=== PATIENT | female | born 1980 | race Caucasian/White ===

== ENCOUNTER 2018-01-30 04:45 | Outpatient (CLI) | payer OTHER | END 2018-01-30 04:46 | disposition EMS.NT | LOC: EMS 04:45 | PROVIDERS: ATTEND Surgery | DX: R07.0 Pain in throat (principal); M54.2 Cervicalgia; Y04.8XXA Assault by other bodily force, initial encounter ==

== ENCOUNTER 2020-09-05 08:59 | Outpatient (CLI) | payer OTHER ==
[2020-09-05 12:21] LABS: BASOPHILS % (AUTO) 0.3 %; EOSINOPHILS # (AUTO) 0.1 10^3/uL (0.0-0.7); EOSINOPHILS % (AUTO) 1.9 %; HGB - HEMOGLOBIN 13.7 g/dL (12.0-16.0); LYMPHOCYTES # (AUTO) 1.8 10^3/uL (1.5-3.5); LYMPHOCYTES % (AUTO) 28.5 %; MEAN CORPUSCULAR HEMOGLOBIN 29.4 pg (27.0-31.0); MEAN CORPUSCULAR HGB CONC 33.1 g/dL (32.0-36.0); MEAN CORPUSCULAR VOLUME 88.8 fL (81.0-99.0); MEAN PLATELET VOLUME 10.7 fL (7.9-10.8); MONOCYTES # (AUTO) 0.3 10^3/uL (0.0-1.0); MONOCYTES % (AUTO) 5.1 %; NEUTROPHILS # (AUTO) 4.1 10^3/uL (1.5-6.6); NEUTROPHILS % (AUTO) 63.7 %; PLT - PLATELET COUNT 265 10^3/uL (130-450); RED BLOOD COUNT 4.66 10^6/uL (4.20-5.40); RED CELL DISTRIBUTION WIDTH 13.2 % (12.0-15.0); WHITE BLOOD COUNT 6.4 x10^3/uL (4.8-10.8)
[2020-09-05 12:35] LABS: ALBUMIN 3.9 g/dL (3.2-5.5); ALBUMIN/GLOBULIN RATIO 1.1 (1.0-2.2); ALKALINE PHOSPHATASE 78 IU/L (42-121); ALT ALANINE AMINOTRANSFERASE 35 IU/L (10-60); AST ASPARTATE AMINOTRANSFERASE 22 IU/L (10-42); BILIRUBIN,TOTAL 0.6 mg/dL (0.2-1.0); BUN - BLOOD UREA NITROGEN 11 mg/dL (6-20); CALCIUM 9.1 mg/dL (8.5-10.3); CARBON DIOXIDE - CO2 24 mmol/L (21-32); CHLORIDE 97 mmol/L (101-111); CHOL/HDL RATIO 5.1 (<4.4); CHOLESTEROL 208 mg/dL; CREATININE 0.6 mg/dL (0.4-1.0); GLUCOSE 292 mg/dL (70-100); HDL CHOLESTEROL 41 mg/dL; TOTAL PROTEIN 7.4 g/dL (6.7-8.2)
[2020-09-05 12:45] LABS: THYROID STIMULATING HORMONE 1.66 uIU/mL (0.34-5.60)
[2020-09-05 12:57] LABS: LDL CHOLESTEROL,DIRECT 93 mg/dL; LDLD/HDL RATIO 2.3 (<4.4)
== END 2020-09-05 09:00 | disposition home or self-care (01) ==
LOC: LAB.N 08:59
PROVIDERS: ATTEND Internal Medicine
DX: R60.9 Edema, unspecified (principal); R53.83 Other fatigue; K90.41 Non-celiac gluten sensitivity; G47.33 Obstructive sleep apnea (adult) (pediatric); Z83.3 Family history of diabetes mellitus; Z13.6 Encounter for screening for cardiovascular disorders; Z82.49 Family history of ischemic heart disease and other diseases of the circulatory system; E11.9 Type 2 diabetes mellitus without complications
CPT/HCPCS: 36415; 80053; 80061; 82607; 83036; 83721; 84443; 85025

== ENCOUNTER 2020-11-15 11:27 | Outpatient (CLI) | payer OTHER ==
[2020-11-15] MEDS ORDERED: IOPAMIDOL-300 100 ML VIAL ONE (11:46)
[2020-11-15] MEDS ORDERED: IOPAMIDOL-300 50 ML VIAL ONE (11:51)
[2020-11-15 12:07] LABS: CREATININE 0.6 mg/dL (0.4-1.0)
[2020-11-15] MEDS ORDERED: IOPAMIDOL-300 100 ML VIAL IVP ONE (13:29)
[2020-11-15] MEDS ORDERED: IOPAMIDOL-300 50 ML VIAL PO ONE (13:30)
--- NOTE | 2020-11-15 14:10 | CT Report ---
PROCEDURE: Abdomen/Pelvis W INDICATIONS: LLQ PAIN, DIARRHEA CONTRAST: IV CONTRAST: Isovue 300 ml: 100 PO CONTRAST: Isovue 300 ml50 TECHNIQUE: After the administration of contrast, 5 mm thick sections acquired from the diaphragms to the sym physis. 5 mm thick coronal and sagittal reformats were acquired. For radiation dose reduction, the following was used: automated exposure control, adjustment of mA and/or kV according to patient size . COMPARISON: None FINDINGS: Image quality: Excellent. ABDOMEN: Lung bases: Lung bases are clear. Heart size is normal. Solid organs: Liver and spleen are normal in size and enhancement. Gallbladder is filled completely with calcified gallstones, but without associated biliary distention or acute cholecystitis Biliary system is non dilated. Pancreas enhances normally. No adrenal nodules. Kidneys demonstrate normal size and enhancement, without hydronephrosis. Peritoneum and bowel: Bowel loops demonstrate normal wall thickness and caliber. No free fluid or a ir. Moderate colonic obstipation. Nodes and vessels: No retroperitoneal or mesenteric adenopathy by size criteria. Aorta and inferior vena cava are normal in size. Miscellaneous: No ventral hernias. PELVIS: Genitourinary: Bladder wall thickness is normal. Miscellaneous: No inguinal hernias or adenopathy. Moderate colonic obstipation. Bones: No suspicious bony lesions. No vertebral body compression fractures. IMPRESSION: There is no evidence of diverticulitis or colitis. Moderate colonic obstipation. Source of current symptoms is not found. The gallbladder is partially filled by numerous densely calcified gallstones. Biliary ductal distenti on is not found. Please correlate clinically to determine whether surgical consultation is warranted. Reviewed by: Boogie Ortiz MD on 11/15/2020 2:08 PM PDT Approved by: Boogie Ortiz MD on 11/15/2020 2:08 PM PDT Station ID: [id number]
== END 2020-11-15 11:28 | disposition home or self-care (01) ==
LOC: LAB 11:27 → DI 11:28
PROVIDERS: ATTEND Physician Assistant
DX: K59.00 Constipation, unspecified (principal); K80.20 Calculus of gallbladder without cholecystitis without obstruction
CPT/HCPCS: 36415; 74177; 82565; Q9967

== ENCOUNTER 2020-12-10 08:54 | Outpatient (CLI) | payer OTHER ==
[2020-12-10 09:41] VITALS: BP 108/72
--- NOTE | 2020-12-10 09:41 | SLEEP CARE CONSULTATION ---
Information from patient questionnaire entered by Danelle Reid. I have reviewed and concur with the information entered by Danelle Reid. This document represents the service I personally performed and the decisions made by me, Jeimy Mckeon ARNP. History of Present Illness Service Date and Time: 12/10/2020 0854 Reason for Visit: New patient, Previously diagnosed sleep apnea, sleep apnea on CPAP therapy ([facility]) Chief Complaint: reports: Insomnia, Unrefreshed sleep, Snoring (when not using CPAP), Fatigue, Other (update supplies) Date of Onset: 12 years Usual bedtime: 10 pm Time it takes to fall asleep: 2 plus hours Snores at night: Yes Observed to quit breathing while asleep: Yes Number of times waking at night: 1-2 if I do Reasons for waking at night: reports: Other (unknown reason, dreams) Toss, Turn, or Twitch while sleeping: No Recalls having dreams: No (not ususally) Usually gets out of bed at: 7:30 am Feels refreshed in the morning: No Morning headache: No Sleepy or fatigued during the day: Yes Ever fallen asleep while driving: No Takes day naps: No Dreams during day naps: No Prior sleep studies: Yes Year and Where: 2015 - [facility]; 2012 - in [place]; 2008 - [place] Additional HPI information: ALYSSA YOUSSEF was diagnosed to have unknown sleep apnea-hypopnea syndrome and comes in today to establish care for CPAP therapy. She thinks her last in lab study showed her AHI in the 90-100s. She does not have a copy with her today. - Parasomnia Symptoms Ever been unable to move upon waking from sleep: No Walks in sleep: No Talks in sleep: No Ever acted out dreams in sleep: Yes Ever felt weak in the knees when startled or emotional: No Bothered by creepy, crawly, restless sensations in legs: No Problems with memory or concentration: Yes (both) CPAP Compliance Data - Data Reviewed with Patient Average duration of nightly device use: 7 hr 58 min Compliance rate %: 99 (180 days) Current pressure setting (cmH2O): 12-17 Average residual AHI: 0.4 Central apnea: 0.0 Obstructive apnea: 0.2 Compliance data discussion: She is using an over the nose mask. She has issues with some skin sensitivity with some masks but her current mask does not. She does have a back up mask if needed. She last changed her mask out last month. She has [employer] and [employer] until her divorce goes through. She states her machine is due for an update. She had one ordered last year but never received it. Subjective Patient concerns: reports: dry mouth, nose, throat (mouth, only when sleeping with mouth open). denies: aerophagia, mask discomfort, air blowing in eyes, mask leak noise, condensation in mask/hose, nasal congestion, epistaxis, other Observed to snore while using device: No Current pressure setting perceived as: comfortable On therapy, patient: reports: sleeping better, awakening more refreshed, being more awake and alert during the day, more rested overall. 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 Patient is and lives in [place]. Have you smoked in the past 12 months: No Cigarettes per day (20/pack): 20 Years of smokin Quit date: 2014 Smoking Pack Years: 15.0 Alcohol use: No Caffeine use: Yes Caffeine amount and frequency: large tea daily Family History Family history of sleep disordered breathing: Yes Family Hx Sleep Apnea: Mother: Snoring, Father: Snoring, Sibling: Snoring, Grandparent: Snoring Allergies and Home Medications Drug allergies reviewed: Yes (Penicillin, codiene, sulfa) Home medication list reviewed: Yes Allergy and home medication list: Ozempic 0.5 mg Metformin 750 mg Multivitamin, occasionally Review of Systems Weight gain over past 5 years: 45 Weight loss over past 5 years: 36 Gastrointestinal: reports: nausea, abdominal pain Psychiatric: reports: Attention Deficit Hyperactivity Ear/Nose/Throat: reports: tonsillectomy Endocrine: reports: too hot or cold Musculoskeletal: reports: back pain, muscle pain or cramping Immunologic: reports: allergies to food or environment, other (chemical sensitivity) Physical Exam Blood Pressure: 108/72 Cuff size: wrist Heart Rate: 97 O2 Saturation: 98 Height: 5 ft 2.75 in Weight: 277 lb Body Mass Index: 49.4 BMI Classification: Morbidly Obese Impression and Plan 1. Obstructive Sleep Apnea-Hypopnea Syndrome, unknown, with excellent treatment compliance and good apnea control. On CPAP therapy, the patient has better sleep quality and is more rested overall. We need a copy of her last sleep study to update her supplies. She thinks she is due for a new machine and she was last setup in 04/2016. Once I have her sleep study then we can also try to update her machine but she may have to wait until April. With her changing to a new insurance she may be able to update sooner. I will follow up with her after she updates her machine or in 1 year depending. Patient's apnea severity and rationale for treatment to reduce apnea, improve sleep quality and reduce cardiovascular and cerebrovascular events was reviewed. I also reviewed the benefit of consistent device use of CPAP for diabetes, Attention deficit. * Continue auto CPAP pressure at 12-17 cmH2O * Update supplies once we obtain copy of previous sleep study * Update machine when eligible * Notify me if snoring with mask or feeling that the pressure is too much or too little * Attempt to lose weight * Call this office if any problems using CPAP * Return for follow up after updating machine, or sooner if concerns arise Counseling Topics: Spare mask, Weight loss health impact Visit Type: In Office Time Spent with Patient (minutes): 33 Provider Statement: I spent 100% of the Face to Face Visit with the patient with greater than 50% spent counseling the patient and coordination of care.
== END 2020-12-10 08:55 | disposition home or self-care (01) ==
LOC: SC 08:54
PROVIDERS: ATTEND Nurse Practitioner Family
DX: G47.33 Obstructive sleep apnea (adult) (pediatric) (principal); E66.01 Morbid (severe) obesity due to excess calories; Z68.42 Body mass index [BMI] 45.0-49.9, adult
CPT/HCPCS: 99203; 99212

== ENCOUNTER 2021-02-13 08:02 | Outpatient (CLI) | payer OTHER ==
--- NOTE | 2021-02-13 08:38 | SLEEP CARE CONSULTATION ---
Information from patient questionnaire entered by Danelle Reid. I have reviewed and concur with the information entered by Danelle Reid. This document represents the service I personally performed and the decisions made by , Jeimy Mckeon ARNP. History of Present Illness Service Date and Time: 02/13/2021 0802 Previous diagnosis: Extremely Severe, Obstructive Sleep Apnea-Hypopnea Syndrome AHI: 112.7 (in 2015) Reason for follow up: first compliance after device update Equipment type: CPAP Equipment obtained from: [facility] (getting supplies needed) Mask style: Nasal Backup mask available: Yes (old mask) Last cushion change: 1.5 months Prior sleep studies: Yes Year and Where: 2015 - [facility]; 2012 - in [place]; 2008 - [facility] additional information: ALYSSA YOUSSEF was diagnosed to have extremely severe, AHI 112.7, obstructive sleep apnea-hypopnea syndrome and returned today for CPAP therapy first compliance after updating device follow-up. CPAP Compliance Data - Data Reviewed with Patient Average duration of nightly device use: 7 hr 44 min Compliance rate %: 100 Current pressure setting (cmH2O): 12-17 Humidity settin Heated hose settin Average residual AHI: 0.6 Average large leak: 8 sec Subjective Patient concerns: reports: mask discomfort, other (redness). denies: aerophagia, air blowing in eyes, mask leak noise, condensation in mask/hose, nasal congestion, dry mouth, nose, throat, epistaxis Observed to snore while using device: No Current pressure setting perceived as: comfortable On therapy, patient: reports: sleeping better, awakening more refreshed, being more awake and alert during the day, more rested overall. denies: drowsiness while driving Initial [place] Sleepiness Scale score: 1 (in 2020) Current [place] Sleepiness Scale score: 0 Allergies and Home Medications Home medication list reviewed: Yes (Ozempic; stopped Metformin) Review of Systems Review of systems same as previous: Yes (no changes) Physical Exam Heart Rate: 96 O2 Saturation: 98 Height: 5 ft 2.75 in Weight: 280 lb Body Mass Index: 50.0 BMI Classification: Morbidly Obese Impression and Plan 1. Obstructive Sleep Apnea-Hypopnea Syndrome, extremely severe, with excellent treatment compliance and excellent apnea control. On CPAP therapy, the patient has better sleep quality and is more rested overall. Patient does like her new machine. Patient states she did get a letter in the mail about a recall on her device. She has not yet read the letter. I informed her of recall details and encouraged her to register her machine online. Patient states she cannot sleep without it due to the severity of her sleep apnea. She has not noted any particles or debris in the machine. Patient states she does have a backup ResMed machine that she could use. I advised her that she could also put in an inline particle filter on the DreamStation if she should decided to continue using the DreamStation. She voiced understanding. Patient has also been having some skin irritation where her mask sits on her face and at the bridge of her nose. I gave her a brochure for [employer] and discussed barrier liners to reduce skin irritation. She was also encouraged to wash her mask daily to reduce dirt and oils on the mask that would cause skin irritation. Patient thinks she could possibly make these liners herself and thanked me for the information. Patient's apnea severity and rationale for treatment to reduce apnea, improve sleep quality and reduce cardiovascular and cerebrovascular events was reviewed. I also reviewed the benefit of consistent device use of CPAP for diabetes and attention deficit. Patient states she has lost about 70 pounds over this last year. She is continue to try to lose weight and next year would like to discuss possibly repeating a sleep study to see if her severity has changed. I encouraged her to continue to try to lose weight and that we would discuss retesting next year. I also reviewed with her signs and symptoms that could indicate she needs to have her pressure reduced. She voiced understanding. * Continue auto CPAP pressure at 12-17 cmH2O * [place] for [employer] recall * Notify me if snoring with mask or feeling that the pressure is too much or too little * Continue to try to lose weight * Call this office if any problems using CPAP * Return for follow up in 1 year, or sooner if concerns arise Counseling Topics: Spare mask, Weight loss health impact Visit Type: In Office Time Spent with Patient (minutes): 19 Provider Statement: I spent 100% of the Face to Face Visit with the patient with greater than 50% spent counseling the patient and coordination of care.
== END 2021-02-13 08:03 | disposition home or self-care (01) ==
LOC: SC 08:02
PROVIDERS: ATTEND Nurse Practitioner Family
DX: G47.33 Obstructive sleep apnea (adult) (pediatric) (principal); E66.01 Morbid (severe) obesity due to excess calories; Z68.43 Body mass index [BMI] 50.0-59.9, adult
CPT/HCPCS: 99212

== ENCOUNTER 2021-10-09 07:00 | Outpatient (CLI) | payer OTHER | END 2021-10-09 23:59 | disposition home or self-care (01) | LOC: LAB.N 07:00 | PROVIDERS: ATTEND Family Medicine | DX: R30.0 Dysuria (principal) | CPT/HCPCS: 87086 ==

== ENCOUNTER 2024-04-10 19:43 | Emergency (ER) | payer OTHER ==
[2024-04-10 20:08] LABS: BASOPHILS % (AUTO) 0.3 %; EOSINOPHILS # (AUTO) 0.1 10^3/uL (0.0-0.7); EOSINOPHILS % (AUTO) 1.1 %; HCT - HEMATOCRIT 40.1 % (37.0-47.0); HGB - HEMOGLOBIN 13.1 g/dL (12.0-16.0); LYMPHOCYTES # (AUTO) 3.1 10^3/uL (1.5-3.5); LYMPHOCYTES % (AUTO) 27.5 %; MEAN CORPUSCULAR HEMOGLOBIN 28.7 pg (27.0-31.0); MEAN CORPUSCULAR HGB CONC 32.7 g/dL (32.0-36.0); MEAN CORPUSCULAR VOLUME 87.9 fL (81.0-99.0); MEAN PLATELET VOLUME 9.8 fL (7.9-10.8); MONOCYTES # (AUTO) 0.6 10^3/uL (0.0-1.0); MONOCYTES % (AUTO) 5.5 %; NEUTROPHILS # (AUTO) 7.3 10^3/uL (1.5-6.6); NEUTROPHILS % (AUTO) 65.2 %; PLT - PLATELET COUNT 284 10^3/uL (130-450); RED BLOOD COUNT 4.56 10^6/uL (4.20-5.40); RED CELL DISTRIBUTION WIDTH 13.2 % (12.0-15.0); WHITE BLOOD COUNT 11.2 x10^3/uL (4.8-10.8)
[2024-04-10 20:22] LABS: BILIRUBIN,URINE NEGATIVE (NEGATIVE); GLUCOSE, URINE (UA) >=1000 mg/dL (NEGATIVE); KETONES,URINE (UA) NEGATIVE (NEGATIVE); LEUKOCYTE ESTERASE, URINE NEGATIVE (NEGATIVE); NITRITE,URINE NEGATIVE (NEGATIVE); OCCULT BLOOD,URINE NEGATIVE (NEGATIVE); PROTEIN,URINE NEGATIVE (NEGATIVE); UROBILINOGEN,URINE 0.2 (NORMAL) E.U./dL (NORMAL)
[2024-04-10 20:24] LABS: ALBUMIN 4.3 g/dL (3.2-5.5); ALBUMIN/GLOBULIN RATIO 1.7 (1.0-2.2); BILIRUBIN,TOTAL 0.3 mg/dL (0.2-1.0); CALCIUM 9.4 mg/dL (8.5-10.3); CREATININE 0.7 mg/dL (0.6-1.3); POTASSIUM 3.8 mmol/L (3.5-4.5); TOTAL PROTEIN 6.9 g/dL (6.4-8.9)
[2024-04-10 20:24] LABS: CLARITY,URINE CLEAR (CLEAR)
[2024-04-10] MEDS: MECLIZINE 12.5 MG TABLET PO STA (21:14)
[2024-04-10 21:16] LABS: HCG UR QUAL NEGATIVE
[2024-04-10] MEDS: SODIUM CHLORIDE 0.9% 1,000 ML IV STA (21:56)
--- NOTE | 2024-04-10 22:39 | ED Physician Documentation ---
History of Present Illness - Stated complaint Stated Complaint: /DIZZY/TIRED - Chief complaint Chief Complaint: Abd Pain - History obtained from History obtained from: Patient - History of Present Illness Timing: Prior to arrival Pain level max: 2 Pain level now: 2 - Additonal information Additional information: Patient is a 44-year-old female presenting to the emergency department with multiple symptoms. Patient has no significant past medical history. She presents with increased bleeding during her menstrual period over the last 3 days. She notes today she does not appear to have any more bleeding but she does feel lightheaded and more fatigued. She notes some mild lower back cramping that was worse but this seems to have resolved. Patient notes she has regular menstrual periods she is unsure if she last missed her last 1 though. She denies any fevers or chills no nausea or vomiting. She notes her symptoms of lightheadedness and dizziness worsened today. She has been eating and drinking normally. She denies any fevers or chills. No viral URI symptoms. No cough congestion sore throat or runny nose. Patient has not taken anything for her symptoms. No chest pain or shortness of breath associated with her symptoms. PD PAST MEDICAL HISTORY - Past Medical History Past Medical History: Yes Cardiovascular: None Respiratory: Asthma, Sleep apnea, CPAP use Endocrine/Autoimmune: Type 2 diabetes, Other GI: None : None Psych: ADD/ADHD Musculoskeletal: None Derm: Psoriasis - Past Surgical History Past Surgical History: Yes /PROFESSOR OF LANGUAGES: section, Tubal ligation HEENT: Tonsil/Adenoidectomy - Present Medications Home Medications: Ambulatory Orders Medication Instructions Recorded Confirmed Ascorbic Acid [Vitamin C] 1,000 mg PO DAILY 05/07/14 05/11/14 Dextroamphetamine/Amphetamine 10 mg PO ONCE PRN 05/07/14 05/11/14 [Adderall 10 mg Tablet] Lactobacillus Acidophilus 1 each PO DAILY 05/07/14 05/07/14 [Probiotic] Ubidecarenone [Coq-10] 200 mg PO DAILY 05/07/14 05/11/14 - Allergies Allergies/Adverse Reactions: Allergies Allergy/AdvReac Type Severity Reaction Status Date / Time codeine Allergy Severe Hives Verified 04/10/24 19:47 Penicillins Allergy Severe Hives Verified 04/10/24 19:47 - Social History Does the pt smoke?: No Smoking Status: Never smoker Does the pt drink ETOH?: No Does the pt have substance abuse?: No - Immunizations Immunizations are current?: Yes - POLST Patient has POLST: No PD ED PE NORMAL - Vitals Vital signs reviewed: Yes - General General: Alert and oriented X 3 - HEENT HEENT: Atraumatic - Neck Neck: Supple, no meningeal sign - Cardiac Cardiac: RRR, No murmur, No gallop, No rub - Respiratory Respiratory: No respiratory distress, Clear bilaterally - Abdomen Abdomen: Normal bowel sounds, Soft, Non tender, Non distended - Back Back: No CVA TTP, No spinal TTP - Derm Derm: Normal color, Warm and dry - Extremities Extremities: No deformity, No tenderness to palpate, Normal ROM s pain (Normal range of motion of all 4 extremities and upper and lower), No edema (No significant pitting edema.) - Neuro Neuro: Alert and oriented X 3, Other (No focal neurodeficits cranial nerves III through XII intact on examination. Patient stable gait on ambulation negative hints test and no nystagmus on examination.) Eye Opening: Spontaneous Motor: Obeys Commands Verbal: Oriented GCS Score: 15 Results - Vitals Vitals: Oxygen O2 Source Room air - Labs Labs: Laboratory Tests 04/10/24 04/10/24 04/10/24 19:58 19:58 20:02 WBC 11.2 H RBC 4.56 Hgb 13.1 Hct 40.1 MCV 87.9 MCH 28.7 MCHC 32.7 RDW 13.2 Plt Count 284 MPV 9.8 Neut # (Auto) 7.3 H Lymph # (Auto) 3.1 [place] # (Auto) 0.6 Eos # (Auto) 0.1 Baso # (Auto) 0.0 Absolute Nucleated RBC 0.00 Nucleated RBC % 0.0 Sodium Potassium Chloride Carbon Dioxide Anion Gap BUN Creatinine Estimated GFR (MDRD) Glucose Calcium Total Bilirubin AST ALT Alkaline Phosphatase Total Protein Albumin Globulin Albumin/Globulin Ratio Lipase Urine Color YELLOW Urine Clarity CLEAR Urine pH 6.0 Ur Specific [place] 1.020 Urine Protein NEGATIVE Urine Glucose (UA) >=1000 H Urine Ketones NEGATIVE Urine Occult Blood NEGATIVE Urine Nitrite NEGATIVE Urine Bilirubin NEGATIVE Urine Urobilinogen 0.2 (NORMAL) Ur Leukocyte Esterase NEGATIVE Ur Microscopic Review NOT INDICATED Urine Culture Comments NOT INDICATED Urine HCG, Qual NEGATIVE 04/10/24 20:02 WBC RBC Hgb Hct MCV MCH MCHC RDW Plt Count MPV Neut # (Auto) Lymph # (Auto) [place] # (Auto) Eos # (Auto) Baso # (Auto) Absolute Nucleated RBC Nucleated RBC % Sodium 135 Potassium 3.8 Chloride 101 Carbon Dioxide 27 Anion Gap 7.0 BUN 13 Creatinine 0.7 Estimated GFR (MDRD) 91 Glucose 169 H Calcium 9.4 Total Bilirubin 0.3 AST 13 ALT 22 Alkaline Phosphatase 65 Total Protein 6.9 Albumin 4.3 Globulin 2.6 Albumin/Globulin Ratio 1.7 Lipase 30 Urine Color Urine Clarity Urine pH Ur Specific [place] Urine Protein Urine Glucose (UA) Urine Ketones Urine Occult Blood Urine Nitrite Urine Bilirubin Urine Urobilinogen Ur Leukocyte Esterase Ur Microscopic Review Urine Culture Comments Urine HCG, Qual PD Medical Decision Making - ED course Complexity details: reviewed results, re-evaluated patient ED course: Patient is a 44-year-old female presenting to the emergency department with fatigue, weakness lightheadedness and increased menstrual bleeding that seems to have resolved today. Patient denies any fevers chills, chest pain shortness of breath. Vitals reviewed here in the ED. Patient tolerating eating and drinking well here in the ED. She denies any nausea or vomiting. Normal cardiac and lung sounds on auscultation. Labs reviewed here in the ED. Shows mild leukocytosis at 11 but no significant drop in hemoglobin. Creatinine level is stable and no significant MARGARET or electrolyte abnormality to explain patient's symptoms. Patient's urine shows no signs of blood in it and no signs of UTI. Patient updated on reassuring findings. Patient was given 1 L of fluids while here in the ED. Patient feeling significantly better after the 1 L of fluids here in the ED. Instructed patient to return to the ED with any new or worsening symptoms. Patient understands and is agreeable with this plan. Departure - Departure Disposition: 01 Home, Self Care Clinical Impression: Dehydration, Lightheadedness, Abnormal uterine bleeding Condition: Good Comments: You were seen here in the emergency department for your symptoms your workup here in the emergency department was reassuringYour hemoglobin was stable you should continue onDrinking lots of fluids symptoms could be secondary to dehydration versus viral URI symptoms versus abnormal uterine bleeding. Follow- up with your PCP in the outpatient setting 1 week to ensure resolution of symptoms return with any new or worsening symptoms. Forms: PCP List Discharge Date/Time: 04/10/24 22:50
[2024-04-10 22:56] VITALS: BP 110/84; O2SAT 98
== END 2024-04-10 22:50 | disposition home or self-care (01) ==
LOC: ED 19:43
DX: R42 Dizziness and giddiness (principal); E86.0 Dehydration; N93.9 Abnormal uterine and vaginal bleeding, unspecified
CPT/HCPCS: 36415; 80053; 81003; 81025; 83690; 85025; 96360; 99283; 99284; A9270; 81001; 87086